=== PATIENT | female | born 1975 ===

== ENCOUNTER 2019-11-20 06:22 | Observation (INO) ==
[2019-11-20] MEDS ORDERED: CeFAZolin Syr 2,000MG/20 ML 2,000 MG/20 ML SYRINGE IVPB ONE (06:53)
[2019-11-20] MEDS ORDERED: *HR* FentaNYL (PF) 100 MCG/2 ML VIAL ONE (07:00)
[2019-11-20] MEDS ORDERED: *HR* Remifentanil 1 MG VIAL IVP ONE ×3 (07:00→11:26)
[2019-11-20] MEDS ORDERED: Ringers Solution, Lactated 1,000 ML IVC SCH ×2 (07:00→14:13)
[2019-11-20] MEDS ORDERED: *HR* Succinylcholine 200 MG/10 ML VIAL IVP ONE (07:00)
[2019-11-20] MEDS ORDERED: *HR* Rocuronium Bromide 50 MG/5 ML VIAL ONE (07:00)
[2019-11-20] MEDS ORDERED: Dexamethasone 4 MG/ML VIAL ONE (07:00)
[2019-11-20] MEDS ORDERED: Lidocaine -MPF 4% 5 ML AMPUL ONE (07:00)
[2019-11-20] MEDS ORDERED: *HR* Phenylephrine 10 MG/ML VIAL ONE (07:00)
[2019-11-20] MEDS ORDERED: Lidocaine -MPF 2% 2 ML VIAL ONE (07:00)
[2019-11-20] MEDS ORDERED: Ondansetron 4 MG/2 ML VIAL ONE (07:00)
[2019-11-20] MEDS ORDERED: *HR* Propofol 200 MG/20 ML VIAL IVP ONE (07:00)
[2019-11-20] MEDS ORDERED: *HR* Midazolam HCl 2 MG/2 ML VIAL ONE (07:00)
[2019-11-20] MEDS ORDERED: *HR* OxyCODONE Immed Rel 5 MG TABLET PO PRN (07:19)
[2019-11-20] MEDS ORDERED: *HR* Promethazine 25 MG/ML VIAL IVP PRN (07:19)
[2019-11-20] MEDS ORDERED: *HR* HYDROmorphone PF 0.5 MG/0.5 ML SYRINGE IVP PRN (07:19)
[2019-11-20] MEDS ORDERED: Ondansetron 4 MG/2 ML VIAL IVP ONE (07:19)
[2019-11-20] MEDS ORDERED: Acetaminophen IV 1,000 MG/100 ML INFUS..BTL IVPB ONE (07:20)
[2019-11-20] MEDS ORDERED: Acetaminophen IV 1,000 MG/100 ML INFUS..BTL ONE ×2 (07:42→08:01)
[2019-11-20] MEDS ORDERED: Bacitracin 50,000 UNIT, Polymyxin B Sulfate 500,000 UNIT, Sodium Chloride IRRigation 1,... IR ONE (07:45)
[2019-11-20] MEDS ORDERED: Total Joint Mixture (50 ml) INTRAART ONE (07:45)
[2019-11-20] MEDS ORDERED: *HR* HYDROMORPHONE 2 MG/ML VIAL ONE ×2 (08:18→12:06)
[2019-11-20] MEDS ORDERED: *HR* PHENYLEPHRINE 1,000 MCG/10 ML SYRINGE IVP ONE (11:11)
[2019-11-20] MEDS ORDERED: *HR* Metoprolol 5 MG/5 ML VIAL IVP ONE (12:25)
[2019-11-20] MEDS ORDERED: Ringers Solution, Lactated 500 ML ONE (13:08)
[2019-11-20] MEDS ORDERED: Ondansetron 4 MG/2 ML VIAL IVP PRN (14:13)
[2019-11-20] MEDS ORDERED: Naloxone 0.4 MG/ML INJ IVP PRN (14:13)
[2019-11-20] MEDS: *HR* OxyCODONE Immed Rel 5 MG TABLET PO PRN ×2 (15:31→19:54)
[2019-11-20] MEDS: CeFAZolin 2 GM/120 ML BAG IVPB SCH ×2 (18:03→23:02)
[2019-11-21] MEDS: *HR* OxyCODONE Immed Rel 5 MG TABLET PO PRN ×2 (01:03→05:16)
[2019-11-21] MEDS: Venlafaxine XR (24 HR) 150 MG CAP.ER.24H PO SCH (09:11)
[2019-11-21] MEDS: Metoprolol XL (24 HR) Succ 25 MG TAB.ER.24H PO SCH (09:11)
[2019-11-21] MEDS: hydroCHLOROthiazide 25 MG TABLET PO SCH (09:20)
[2019-11-21 11:21] LABS: Basophils % 0.2 %; Eosinophils % 0.2 %; Hematocrit 24.5 % (35.3-44.9); Hemoglobin 8.2 g/dL (11.5-15.4); Immature Granulocytes % 0.7 % (0-4); Lymphocytes # 2.5 K/mcL (0.6-4.6); Lymphocytes % 15.3 %; Mean Corpuscular HGB Conc 33.5 g/dL (31.6-35.5); Mean Corpuscular Hemoglobin 32.4 pg (28.0-33.3); Mean Corpuscular Volume 96.8 fL (83.0-100.0); Mean Platelet Volume 11.3 fL (9.4-12.4); Monocytes # 1.3 K/mcL (0.0-1.3); Neutrophils # 12.4 K/mcL (1.6-8.9); Platelet Count 212 K/mcL (140-400); Red Blood Count 2.53 M/mcL (3.82-4.97); Red Cell Distribution Width 13.4 % (11.5-14.5); Segmented Neutrophils % 75.6 %; White Blood Count 16.5 K/mcL (4.3-11.1)
[2019-11-21 11:32] LABS: BUN/Creatinine Ratio 23 (6-26); Blood Urea Nitrogen 13 mg/dL (6-20); Calcium 7.9 mg/dL (8.6-10.3); Carbon Dioxide 27 mEq/L (23-29); Chloride 103 mEq/L (98-107); Glucose 101 mg/dL (70-105); Osmolality,Calculated 282 (280-300); Potassium 3.4 mEq/L (3.5-5.1); Sodium 136 mEq/L (136-145); eGFR For African Americans > 60 (> 60); eGFR For Non-African Americans > 60 (> 60)
[2019-11-21] MEDS ORDERED: 0.9 % Sodium Chloride 1,000 ML IV ONE (11:56)
[2019-11-21] MEDS ORDERED: 0.9 % Sodium Chloride 1,000 ML IVC SCH (12:00)
[2019-11-21 16:09] LABS: Hematocrit 21.8 % (35.3-44.9); Hemoglobin 7.4 g/dL (11.5-15.4)
[2019-11-21] MEDS: *HR* HYDROcodone/Acet 5/325 mg TABLET PO PRN (20:47)
[2019-11-22] MEDS: 0.9 % Sodium Chloride 1,000 ML IVC SCH ×3 (01:28→16:58)
[2019-11-22] MEDS: *HR* OxyCODONE Immed Rel 5 MG TABLET PO PRN ×3 (02:47→23:16)
[2019-11-22] MEDS: *HR* HYDROcodone/Acet 5/325 mg TABLET PO PRN ×3 (05:08→20:28)
[2019-11-22 06:35] LABS: Basophils % 0.2 %; Eosinophils % 0.2 %; Hematocrit 20.3 % (35.3-44.9); Hemoglobin 6.9 g/dL (11.5-15.4); Immature Granulocytes % 0.6 % (0-4); Lymphocytes # 2.5 K/mcL (0.6-4.6); Lymphocytes % 16.7 %; Mean Corpuscular Hemoglobin 33.2 pg (28.0-33.3); Mean Corpuscular Volume 97.6 fL (83.0-100.0); Mean Platelet Volume 11.5 fL (9.4-12.4); Monocytes # 1.1 K/mcL (0.0-1.3); Monocytes % 7.4 %; Platelet Count 209 K/mcL (140-400); Red Blood Count 2.08 M/mcL (3.82-4.97); Red Cell Distribution Width 13.4 % (11.5-14.5); Segmented Neutrophils % 74.9 %; White Blood Count 14.7 K/mcL (4.3-11.1)
[2019-11-22 06:46] LABS: BUN/Creatinine Ratio 15 (6-26); Blood Urea Nitrogen 7 mg/dL (6-20); Calcium 7.6 mg/dL (8.6-10.3); Carbon Dioxide 25 mEq/L (23-29); Chloride 110 mEq/L (98-107); Glucose 116 mg/dL (70-105); Osmolality,Calculated 287 (280-300); Potassium 2.9 mEq/L (3.5-5.1); Sodium 139 mEq/L (136-145); eGFR For African Americans > 60 (> 60); eGFR For Non-African Americans > 60 (> 60)
[2019-11-22] MEDS: Metoprolol XL (24 HR) Succ 25 MG TAB.ER.24H PO SCH (08:23)
[2019-11-22] MEDS: Venlafaxine XR (24 HR) 150 MG CAP.ER.24H PO SCH (08:23)
[2019-11-22] MEDS: hydroCHLOROthiazide 25 MG TABLET PO SCH (08:24)
[2019-11-22] MEDS ORDERED: 0.9 % Sodium Chloride 250 ML IVC SCH (10:15)
[2019-11-22 11:07] LABS: Albumin 2.9 g/dL (3.5-5.7); Magnesium 1.9 mg/dL (1.6-2.6); Phosphorous 1.2 mg/dL (2.7-4.5)
[2019-11-22] MEDS ORDERED: Potassium Phosphate 44 MEQ in 0.9 % Sodium Chloride 250 ML IVPB ONE (14:45)
[2019-11-22 14:57] LABS: Bilirubin,Urine Negative (Negative); Blood,Urine Negative (Negative); Clarity,Urine Clear (Clear); Color,Urine Light-Yellow (Yellow); Glucose,Urine (UA) Normal (Normal); Ketones,Urine Trace mg/dL (Negative); Leukocyte Esterase,Urine Negative (Negative); Nitrite,Urine Negative (Negative); Protein,Urine Negative (Neg-Trace); Specific Gravity,Urine 1.014 (1.010-1.025)
[2019-11-22 17:33] LABS: Hematocrit 23.7 % (35.3-44.9); Hemoglobin 7.9 g/dL (11.5-15.4)
[2019-11-22] MEDS: Acetaminophen 325 MG TABLET PO PRN (18:41)
[2019-11-22] MEDS ORDERED: Iron Sucrose Complex 250 MG in 0.9 % Sodium Chloride 250 ML IVPB ONE ×2 (19:00→22:30)
[2019-11-23] MEDS: 0.9 % Sodium Chloride 1,000 ML IVC SCH (03:24)
[2019-11-23] MEDS: *HR* OxyCODONE Immed Rel 5 MG TABLET PO PRN ×2 (03:57→08:15)
[2019-11-23 06:47] LABS: Basophils # 0.1 K/mcL (0.0-0.2); Basophils % 0.5 %; Eosinophils # 0.2 K/mcL (0.0-0.6); Eosinophils % 1.6 %; Hematocrit 22.1 % (35.3-44.9); Hemoglobin 7.4 g/dL (11.5-15.4); Immature Granulocytes % 0.4 % (0-4); Lymphocytes # 2.4 K/mcL (0.6-4.6); Lymphocytes % 24.4 %; Mean Corpuscular HGB Conc 33.5 g/dL (31.6-35.5); Mean Corpuscular Hemoglobin 32.3 pg (28.0-33.3); Mean Corpuscular Volume 96.5 fL (83.0-100.0); Mean Platelet Volume 11.2 fL (9.4-12.4); Monocytes # 0.8 K/mcL (0.0-1.3); Monocytes % 8.5 %; Neutrophils # 6.4 K/mcL (1.6-8.9); Nucleated Red Blood Cells 0.2 /100 WBC (0); Platelet Count 225 K/mcL (140-400); Red Blood Count 2.29 M/mcL (3.82-4.97); Red Cell Distribution Width 14.1 % (11.5-14.5); Segmented Neutrophils % 64.6 %; White Blood Count 9.9 K/mcL (4.3-11.1)
[2019-11-23 07:11] LABS: % Iron Saturation 140 % (15-50); Alanine Aminotransferase 138 Units/L (7-52); Albumin/Globulin Ratio 1.4 (1.1-2.2); Alkaline Phosphatase 131 Units/L (34-104); Aspartate Amino Transferase 68 Units/L (13-39); BUN/Creatinine Ratio 17 (6-26); Bilirubin,Total 0.6 mg/dL (0.3-1.0); Blood Urea Nitrogen 8 mg/dL (6-20); Calcium 7.6 mg/dL (8.6-10.3); Carbon Dioxide 22 mEq/L (23-29); Chloride 112 mEq/L (98-107); Globulin 2.2 g/dL (2.4-3.5); Glucose 93 mg/dL (70-105); Iron 306 mcg/dL (50-170); Osmolality,Calculated 286 (280-300); Phosphorous 1.4 mg/dL (2.7-4.5); Potassium 3.5 mEq/L (3.5-5.1); Sodium 139 mEq/L (136-145); Total Protein 5.2 g/dL (6.4-8.9); Transferrin 156 mg/dL (203-362); eGFR For African Americans > 60 (> 60); eGFR For Non-African Americans > 60 (> 60)
[2019-11-23] MEDS: Metoprolol XL (24 HR) Succ 25 MG TAB.ER.24H PO SCH (08:14)
[2019-11-23] MEDS: Venlafaxine XR (24 HR) 150 MG CAP.ER.24H PO SCH (08:14)
[2019-11-23] MEDS ORDERED: Isovue-370 500 ML BOTTLE IVP ONE (09:00)
[2019-11-23 10:57] VITALS: BP 102/69
[2019-11-23] MEDS ORDERED: *HR* OxyCODONE Immed Rel 5 MG TABLET PO PRN (11:06)
[2019-11-23] MEDS: Acetaminophen 325 MG TABLET PO PRN (12:08)
[2019-11-23 12:39] LABS: Hematocrit 22.4 % (35.3-44.9); Hemoglobin 7.5 g/dL (11.5-15.4)
== END 2019-11-23 15:07 | disposition home or self-care (01) ==
LOC: 3NENU 06:22 → SAMDAY 06:22 → 3NENU 13:42
PROVIDERS: ADMIT Orthopaedic Surgery Orthopaedic Surgery of the Spine; ATTEND Orthopaedic Surgery Orthopaedic Surgery of the Spine